=== PATIENT | female | born 1970 | race Caucasian/White ===

== ENCOUNTER 2016-06-10 08:56 | Day surgery (SDC) | payer OTHER ==
[2016-06-09 10:47] VITALS: BMI 21.6
[2016-06-10 09:41] LABS: URINE APPEARANCE CLEAR; URINE BILIRUBIN NEGATIVE (NEGATIVE); URINE COLOR YELLOW; URINE GLUCOSE (UA) NEGATIVE (NEGATIVE); URINE KETONE NEGATIVE (NEGATIVE); URINE LEUK ESTERASE NEGATIVE (NEGATIVE); URINE NITRITE NEGATIVE (NEGATIVE); URINE PROTEIN NEGATIVE (NEGATIVE); URINE UROBILINOGEN NEGATIVE E.U./dl (0.2-1.0)
[2016-06-10 10:00] LABS: URINE BLOOD 2+ (NEGATIVE)
[2016-06-10] MEDS ORDERED: LIDOCAINE HCL 1%, 10 MG/ML (20ML VIAL) ONE (10:18)
--- NOTE | 2016-06-10 10:20 | EKG ---
Test Reason : Blood Pressure : / mmHG Vent. Rate : 074 BPM Atrial Rate : 074 BPM P-R Int : 112 ms QRS Dur : 086 ms QT Int : 394 ms P-R-T Axes : 000 068 018 degrees QTc Int : 437 ms NORMAL SINUS RHYTHM NONSPECIFIC T WAVE ABNORMALITY Confirmed by LAINEY ARANGO MD ([id number]) on 06/10/2016 10:20:08 AM Referred By: KAREN WAGNER Confirmed By:LAINEY ARANGO MD
[2016-06-10] MEDS ORDERED: PROPOFOL 20 ML ONE (10:57)
[2016-06-10] MEDS ORDERED: MIDAZOLAM HCL 2 MG/2 ML SINGLE DOSE VIAL ONE (10:57)
[2016-06-10] MEDS ORDERED: LIDOCAINE HCL 1%, 10 MG/ML (50 mL VIAL) IJ ONE ×2 (11:22)
[2016-06-10] MEDS ORDERED: ACETAMINOPHEN 1000 MG/100 ML VIAL (NON FORMULARY) IVPB PRN (11:51)
[2016-06-10] MEDS ORDERED: oxyCODONE HCL 5 MG TABLET PO PRN (11:51)
[2016-06-10] MEDS ORDERED: IBUPROFEN 800 MG/8 ML IJ IVPB PRN (11:51)
[2016-06-10] MEDS ORDERED: ONDANSETRON 4 MG/2 ML VIAL IVPUSH PRN (11:51)
--- NOTE | 2016-06-10 11:55 | HP ---
History & Physical Update - History History: No Change - Physical Physical: No Change - Assessment Assessment: No Change - Plan Plan: No Change
[2016-06-10] MEDS ORDERED: LACTATED RINGERS SOLUTION 1,000 ML IV SCH (12:00)
[2016-06-10 12:44] VITALS: TEMP 98.5
[2016-06-10] MEDS ORDERED: IBUPROFEN 600 MG TABLET (FP) PO ONE (14:10)
[2016-06-10 15:53] VITALS: BP 110/65; PULSE 80
--- NOTE | 2016-06-11 11:09 | OP ---
DATE OF OPERATION: 06/10/2016 PREOPERATIVE DIAGNOSIS: Right breast mass. POSTOPERATIVE DIAGNOSIS: Right breast mass. PROCEDURE: Right breast ultrasound-guided excision. SURGEON: Taya Jones MD ANESTHESIA: Local, IV sedation. ESTIMATED BLOOD LOSS: Minimal. COMPLICATIONS: None. DISPOSITION: Stable at end of procedure. INDICATION: Patient has a right breast 11 o'clock mass 4 cm from the nipple on exam and ultrasound which is increasing in size and we discussed option of a biopsy, a needle biopsy versus surgical excision. After discussion, decision was to go ahead with the surgical excision. The procedure was discussed with all the questions answered. PROCEDURE IN DETAIL: Patient brought to [facility] and taken into the operating room. After IV sedation, the right breast was prepped and draped in the usual sterile fashion. An ultrasound was performed in the right breast 11 o'clock location 4 cm from the nipple and the lesion in question identified. Using Betadine and 1% lidocaine, the area was anesthetized and a periareolar incision was made in the upper outer right breast and an ultrasound-guided excision was performed. The mass excised was sent as a right breast excisional mass to Pathology in formalin. Hemostasis with electrocautery. The parenchyma approximated with interrupted 2-0 Vicryl. Skin approximated with interrupted 3-0 Vicryl and running 4-0 Prolene. A sterile dressing of Tegaderm and 4 x 4s was applied. She tolerated procedure well. Was taken to recovery in good condition. TAYA JONES M.D. [id number]
--- NOTE | 2016-06-13 10:32 | PATH ---
Surgical Pathology Report Patient Name: DOROTHEA TATE [facility]. Rec. #: [id number] /Age/Gender: 1970 (Age: 46) / F Account: [id number] Location: [facility] SURGICAL Taken: 06/10/2016 Received: 06/10/2016 Reported: 06/13/2016 Physicians: Taya Montesinos M.D. Specimen(s) Received MASS OF RIGHT BREAST Clinical History Palpable right breast mass, probably benign Final Diagnosis RIGHT BREAST, WIDE EXCISION WITHOUT WIRE LOCALIZATION: FIBROADENOMA. MARGINS OF EXCISION ARE FREE OF FIBROADENOMA. SURROUNDING BREAST TISSUE SHOWS FIBROCYSTIC CHANGES INCLUDING ADENOSIS, STROMAL FIBROSIS, DUCTAL DILATATION, AND CYSTIC APOCRINE METAPLASIA. Electronically Signed Regis Hightower M.D. Gross Description Received in formalin labeled "right breast excision," is a 3.7 x 2.7 x 2.6 cm irregular, unoriented portion of fibroadipose tissue. There is no needle localization wire present. There is no skin present. The specimen is inked black and serially sectioned. Sectioning reveals a 2.3 x 1.9 x 1.1 cm pérez, rubbery fibrous mass focally abutting the radial margin. The remaining breast parenchyma displays abundant dense white fibrous tissue. Salesperson Floor Coverings sections are submitted in 6 cassettes as follows: [id number]-[id number] and sequentially submitted mass; 6-additional fibrous tissue. Total formalin fixation time: Approximately 6 hours 06/10/201606/10/2016
== END 2016-06-10 14:55 | disposition home or self-care (01) ==
LOC: JASU-SURG 08:56
PROVIDERS: ATTEND Surgery
PROC: 0HBT0ZX Excision of Right Breast, Open Approach, Diagnostic (ICD-10-PCS; principal; 2016-06-10 11:00)
DX: D24.1 Benign neoplasm of right breast (principal)
CPT/HCPCS: 81003; 81015; 84703; 88307-TC; 93005; 93010; 94760

== ENCOUNTER 2018-11-03 11:31 | Emergency (ER) | payer OTHER ==
[2018-11-03 11:37] VITALS: BMI 23.1
--- NOTE | 2018-11-03 12:30 | PDOC ---
Attending Attestation - Resident Resident Name: AdrianDuke - ED Attending Attestation I have performed the following: I have examined & evaluated the patient, The case was reviewed & discussed with the resident, I agree w/resident's findings & plan, Exceptions are as noted - HPI HPI: 11/03/18 12:18 48 yo F with h/o endometrial polyp, dysfunctional bleeding s/p D&C 8 days ago here with co persistant bleeding chills, lightheaded. did have dc initially after 3 days, no thinner but still having chills. states initially had whitish discharge, followed by spoting and pink blood and brownish . 4 days ago increased in severity to level of period, and now is bleeding heavily more than a normal period. does have chills .no fevers. did not take any motrin or tyleno today prior to arrival. no urinary complaints. no flank pain, lower abd pain described as cramping. took motrin intermittently days prior for pain. none today. does take levonorgestrol/ estradiol was taking two tablets daily prior to D & C , and now was told to only take one daily. spoke wiht chief controller tower ob/ air export logistics manager who told her to come to ed. 11/03/18 12:53 - Physicial Exam PE: 11/03/18 13:00 awake alert lungs clear bilat heart rrr no mrg abd soft nt mild low suprapubic bilt lower quad ttp. no rebound no guarding. no cva tenderness. pelvic. cervix with fungating, irregulare contour whitish tissue, heeped up edges. some areas of excoriation. open finger tip. scant mucous brownish yellowish/ whitish dc. no blood pooling in vault. - Medical Decision Making 11/03/18 13:01 48 yo f with h/o dysfunctional bleedign with c/o profuse bleedign post D&C and chills. differential anemia, endometritis, cervical trauma vs. normal post op changes, cervicitis. plan tvus, labs coags, will d/w dr St. 11/03/18 14:11 pt with minimal bleeding on exam. resident d/w air export logistics manager partner, recommed outpt followup. pt no fever. no white count.
--- NOTE | 2018-11-03 12:53 | PDOC ---
History of Present Illness - General Chief Complaint: Vaginal Bleeding Stated Complaint: VAGINAL BLEEDING History Source: Patient - History of Present Illness Initial Comments: 11/03/18 13:22 Ms. Burroughs is a 48 y/o woman with hx fibroid uterus presenting 8 days s/ p D&C for ongoing vaginal discharge, bleeding, chills, and lightheadedness. She reports that she underwent a D&C 8 days ago as part of the management for abnormal uterine bleeding. She reports a polypectomy at that time. She reports that in the days following the procedure she experienced some vaginal bleeding that she attributed to the procedure. She reports that three days after the procedure she noted some white vaginal discharge, which became clearer on the fourth day. She reports that the discharge became streaked with blood, and for the last three days has noted vaginal bleeding heavier than her normal period. She reports switching out an extra thick pad 4 times yesterday, and before her arrival today (at approx 1130) had changed three pads that morning. She reports that yesterday she began to notice large clots and became concerned. She reports that she contacted her sustainable communities designer's office for an appointment, but Dr. Aquino nor his engineering inspection assistant were available. She reports speaking with the on-call sustainable communities designer who instructed her to present to the ED if her symptoms did not improve before the following morning. She reports chills and lightheadedness since yesterday. She denies any fevers, nausea, vomiting, night sweats, fatigue, chest pain, abdominal pain, or shortness of breath. Past History - Past Medical History Allergies/Adverse Reactions: Allergies Allergy/AdvReac Type Severity Reaction Status Date / Time No Known Allergies Allergy Verified 06/09/16 10:49 Anemia: No Asthma: No Cancer: No Cardiac Disorders: No CVA: No COPD: No CHF: No Dementia: No Diabetes: No GI Disorders: No Disorders: No HTN: No Hypercholesterolemia: No Liver Disease: No Seizures: No Thyroid Disease: No - Reproductive History Is Patient Now?: No - Immunization History Immunization Up to Date: No - Psycho Social/Smoking Cessation Hx Smoking History: Never smoked Have you smoked in the past 12 months: No Information on smoking cessation initiated: No Hx Alcohol Use: No Drug/Substance Use Hx: No Substance Use Type: None Review of Systems - Review of Systems Able to Perform ROS?: Yes Comments:: ROS: GENERAL/CONSTITUTIONAL: No fever or chills. No weakness. HEAD, EYES, EARS, NOSE AND THROAT: No change in vision. No ear pain or discharge. No sore throat. CARDIOVASCULAR: No chest pain or shortness of breath RESPIRATORY: No cough, wheezing, or hemoptysis. GASTROINTESTINAL: No nausea, vomiting, diarrhea or constipation. GENITOURINARY: Vaginal bleeding, clots. No dysuria, frequency, or change in urination. MUSCULOSKELETAL: No joint or muscle swelling or pain. No neck or back pain. SKIN: No rash NEUROLOGIC: No headache, vertigo, loss of consciousness, or change in strength/ sensation. ENDOCRINE: No increased thirst. No abnormal weight change HEMATOLOGIC/LYMPHATIC: No anemia, easy bleeding, or history of blood clots. ALLERGIC/IMMUNOLOGIC: No hives or skin allergy. *Physical Exam - Vital Signs Last Vital Signs Temp Pulse Resp BP Pulse Ox 98.0 F 75 18 109/89 100 11/03/18 11:33 11/03/18 11:33 11/03/18 11:33 11/03/18 11:33 11/03/18 11:33 - Physical Exam Comments: PE: GENERAL: Awake, alert, and fully oriented, in no acute distress HEAD: No signs of trauma, normocephalic, atraumatic EYES: PERRLA, EOMI, sclera anicteric, conjunctiva clear ENT: Auricles normal inspection, hearing grossly normal, nares patent, oropharynx clear without exudates. Moist mucosa NECK: Normal ROM, supple, no lymphadenopathy, JVD, or masses LUNGS: No distress, speaks full sentences, clear to auscultation bilaterally HEART: Regular rate and rhythm, normal S1 and S2, no murmurs, rubs or gallops, peripheral pulses normal and equal bilaterally. ABDOMEN: Soft, nontender, normoactive bowel sounds. No guarding, no rebound. No masses EXTREMITIES : Normal inspection, Normal range of motion, no edema. No clubbing or cyanosis NEUROLOGICAL: Cranial nerves II through XII grossly intact. Normal speech, normal gait, no focal sensorimotor deficits SKIN: Warm, Dry, normal turgor, no rashes or lesions noted ED Treatment Course - LABORATORY CBC & Chemistry Diagram: 11/03/18 12:32 11/03/18 12:32 Medical Decision Making - Medical Decision Making 11/03/18 12:38 48 presenting 8 days s/p D&C for abnormal uterine bleeding p/w 8 days of vaginal bleeding. Plan: CBC CMP PT/INR PTT Consult Dr. Aquino Dispo: [facility] labs 11/03/18 12:54 Pelvic exam - notable for slightly open, irregularly contoured cervical os, white and excoriated in color with thin white discharge. Scant blood noted in vault. Cervical os nontender during exam. Plan for uterine ultrasound --- TVUS negative for acute process, notable for fibroids. CBC, CMP - wnl, no leukocytosis or anemia 11/03/18 14:07 Case discussed with on-call physician for Dr. Aquino. No recs at this time for ongoing vaginal bleeding, plan for close follow up with Dr. Aquino on Monday. Plan for discharge home, close sustainable communities designer follow up. Discharge - Discharge Information Problems reviewed: Yes Clinical Impression/Diagnosis: Follow up Condition: Stable Disposition: HOME - Admission No - Follow up/Referral Referrals: Jaswinder Melgoza MD [Primary Care Provider] - - Patient Discharge Instructions Patient Printed Discharge Instructions: DI for Vaginal Bleeding Additional Instructions: You were seen in the emergency department for vaginal bleeding. We conducted a pelvic exam and checked your blood levels. Your blood work returned normal, without signs of infection or anemia. Please follow up with your ObGyn on Monday , or as soon as possible. The bleeding should be slowing down. Please return to the emergency department if you become weak, develop fevers, or if the bleeding worsens and you begin to develop palpitations. - Post Discharge Activity
[2018-11-03 13:01] LABS: BASO % 0.5 % (0-2.0); EOS % 0.7 % (0-4.5); HEMOGLOBIN 13.4 GM/dL (10.7-15.3); LYMPH % 26.7 % (8-40); MCH 30.8 pg (25.7-33.7); MCHC 33.5 g/dl (32.0-36.0); MEAN CELL VOLUME 91.9 fl (80-96); MEAN PLT VOLUME 8.1 fl (7.5-11.1); MONO % 4.5 % (3.8-10.2); NEUT % 67.6 % (42.8-82.8); PLATELET COUNT 392 K/MM3 (134-434); RBC 4.35 M/mm3 (3.60-5.2); WHITE BLOOD COUNT 7.9 K/mm3 (4.0-10.0)
[2018-11-03 13:29] LABS: ALBUMIN 3.6 g/dl (3.4-5.0); BILIRUBIN,TOTAL 0.4 mg/dL (0.2-1); CALCIUM 8.7 mg/dL (8.5-10.1); CREATININE 0.7 mg/dL (0.55-1.3); POTASSIUM 4.1 mmol/L (3.5-5.1); TOT PROT 7.4 g/dl (6.4-8.2)
[2018-11-03 13:50] LABS: INR 0.92 (0.83-1.09); PROTHROMBIN TIME (PATIENT) 10.8 SEC (9.7-13.0)
[2018-11-03 13:53] LABS: ACTIVATED PTT 30.4 SECONDS (25.2-36.5)
[2018-11-03 14:35] VITALS: BP 111/56; PULSE 78; TEMP 98.6
== END 2018-11-03 14:41 | disposition home or self-care (01) ==
LOC: JER 11:31
DX: N93.8 Other specified abnormal uterine and vaginal bleeding (principal); Z98.890 Other specified postprocedural states
CPT/HCPCS: 36415; 76830-TC; 80053; 85025; 85610; 85730; 99284-25